=== PATIENT | male | born 1980 | race Caucasian/White ===

== ENCOUNTER 2025-01-19 10:16 | Emergency (ER) | payer OTHER ==
[~2025-01-19] VITALS: Ht 175.3 cm; Wt 88.5 kg
[2025-01-19] MEDS ORDERED: EXCEDRIN EXTRA1 EAC2 PO (11:45)
[2025-01-19] MEDS ORDERED: TYLENOL325 MG PO (11:46)
[2025-01-19] MEDS ORDERED: ACETAMINOPHEN 500 MG GEL..CAP PO ONE ×2 (13:00→13:08)
[2025-01-19] MEDS ORDERED: ORPHENADRINE CITRATE 30 MG/ML AMPUL IM ONE (15:00)
[2025-01-19] MEDS ORDERED: NORFLEX100MG PO (15:04)
[2025-01-19] MEDS ORDERED: BUTALB-ACETAMI1 EAC2 PO (15:04)
[2025-01-19] MEDS ORDERED: ORPHENADRINE CITRATE 30 MG/ML AMPUL ONE (15:40)
== END 2025-01-19 15:46 | disposition home or self-care (01) ==
LOC: ER 10:19
DX: G43.909 Migraine, unspecified, not intractable, without status migrainosus (principal); M62.838 Other muscle spasm
CPT/HCPCS: 70450; 96372; 99284; J2360